=== PATIENT | female | born 1975 | race Caucasian/White ===

== ENCOUNTER 2017-06-21 18:02 | Inpatient (IN) ==
[2017-06-21] MEDS: LACTATED RINGERS 1,000 ML IV SCH (18:13)
[2017-06-21] MEDS ORDERED: ceFAZolin 2,000 MG in PREMIX 1 EACH IV ONE (18:16)
[2017-06-21] MEDS ORDERED: CITRIC ACID/SODIUM CITRATE 30 ML UDCUP PO ONE (18:16)
[2017-06-21] MEDS ORDERED: FAMOTIDINE 20 MG/2 ML VIAL IV ONE (18:16)
[2017-06-21] MEDS ORDERED: OXYTOCIN/LR 20 UNIT/1,000 ML BAG IV ONE ×2 (18:17→20:35)
[2017-06-21 18:41] LABS: Basophils % 0.3 % (0.0-0.8); Eosinophils % 0.2 % (0.00-10.9); Hematocrit 36.3 VOL% (35.7-47.0); Hemoglobin 11.8 GM/DL (12.0-16.0); Immature Granulocytes % 0.6 %; Immature Granulocytes Absolute 0.06 #; Lymphocytes # 1.1 10*3/uL (1.4-4.0); Lymphocytes % 10.1 % (21.3-54.2); Mean Corpuscular HGB Conc 32.5 GM/DL (32-36); Mean Corpuscular Hemoglobin 27 PG (27-34); Mean Corpuscular Volume 81.8 FL (87-102); Monocytes % 9.3 % (1.7-12.7); Neutrophils # 8.5 10*3/uL (1.4-7.4); Neutrophils % 79.5 % (38.7-73.9); Platelet Count 264 T/CUMM (130-400); Red Blood Count 4.44 MC/CUMM (3.8-5.5); Red Cell Distribution Width 14.1 % (9.3-17.3); White Blood Count 10.7 T/CUMM (4-12)
[2017-06-21 18:59] LABS: Apearance,Urine Slightly Hazy (Clear); Bilirubin,Urine Negative (Negative); Blood, Urine Negative (Negative); Glucose,Urine (UA) >=500 mg/dL (Negative); Ketones,Urine 80 mg/dL (Negative); Mucus,Urine Few /LPF (Occasional); Nitrite,Urine Negative (Negative); Protein,Urine 30 MG/DL; RBC,Urine <1 /HPF (0-4); Squamous Epithelial Cell,Urine Occasional /HPF (0-10); Urine Color Yellow (Yellow); Urine Specific Gravity 1.026 (1.001-1.035); Urine Urobilinogen < 2.0 EU/DL (0.2-1.0); WBC,Urine 2 /HPF (0-6)
[2017-06-21 19:15] LABS: Alanine Aminotransferase 29 U/L (13-56); Albumin 2.2 G/DL (3.4-5.0); Alkaline Phosphatase 110 U/L (45-117); Aspartate Amino Transferase 23 U/L (0-37); Bilirubin,Total < 0.39 MG/DL (0.2-1.0); Blood Urea Nitrogen 13 MG/DL (7-18); Calcium 8.3 MG/DL (8.5-10.1); Glucose 155 MG/DL (74-106); Osmolality,Calculated 275.8 MOS/KG (273-304); Potassium 4.3 MMOL/L (3.5-5.1); Sodium 137 MMOL/L (136-145); Total Protein 5.6 G/DL (6.4-8.3)
[2017-06-21] MEDS ORDERED: MEASLES/MUMPS/RUBELLA VACCINE 0.5 ML VIAL SUBCUT ONE (20:35)
[2017-06-21] MEDS ORDERED: IBUPROFEN 800 MG TABLET PO PRN (20:35)
[2017-06-21] MEDS ORDERED: LANOLIN 50% CREAM 0.3 OZ TUBE TOP PRN (20:35)
[2017-06-21] MEDS ORDERED: HYDROCORTISONE 2.5% RECTAL CREAM 30 GM TUBE TOP PRN (20:35)
[2017-06-21] MEDS ORDERED: RHO(D) IMMUNE GLOBULIN 300 MCG SYRINGE IM ONE (20:35)
[2017-06-21] MEDS ORDERED: ACETAMINOPHEN 325 MG TABLET PO PRN (20:35)
[2017-06-21] MEDS ORDERED: oxyCODONE/ACETAMINOPHEN 5-325 MG TABLET PO PRN (20:35)
[2017-06-21] MEDS ORDERED: DIPH/TET/ACEL PERT BOOSTER VACCINE 0.5 ML VIAL IM ONE (20:35)
[2017-06-21] MEDS ORDERED: BISACODYL 10 MG SUPP RECTAL PRN (20:35)
[2017-06-21] MEDS ORDERED: WITCH HAZEL PADS 100/JAR TOP PRN (20:35)
[2017-06-21] MEDS ORDERED: BENZOCAINE 20%/MENTHOL 0.5% SPRAY 56 GM CAN TOP PRN (20:35)
[2017-06-21] MEDS ORDERED: ONDANSETRON 4 MG/2 ML VIAL IV PRN (20:35)
[2017-06-21] MEDS ORDERED: fentaNYL 100 MCG/2 ML VIAL ONE (20:42)
[2017-06-21] MEDS ORDERED: MORPHINE 10 MG/10 ML VIAL ONE (20:43)
[2017-06-21] MEDS ORDERED: MIDAZOLAM 2 MG/2 ML VIAL ONE (20:44)
[2017-06-21] MEDS ORDERED: PHENYLEPHRINE 10 MG/1 ML VIAL IV ONE (20:47)
[2017-06-21] MEDS ORDERED: GLUCAGON 1 MG VIAL IM PRN ×2 (21:13→22:57)
[2017-06-21] MEDS ORDERED: DEXTROSE 50% 25 GM/50 ML VIAL IV PRN ×2 (21:13→22:57)
[2017-06-21] MEDS: DOCUSATE SODIUM 100 MG CAPSULE PO SCH (21:26)
[2017-06-22] MEDS ORDERED: diphenhydrAMINE 50 MG/1 ML VIAL ONE (01:34)
[2017-06-22] MEDS ORDERED: diphenhydrAMINE 50 MG/1 ML VIAL IV PRN (01:36)
[2017-06-22] MEDS: ceFAZolin 1,000 MG in SYRINGE 1 EACH IV SCH ×3 (04:07→20:41)
[2017-06-22 05:09] LABS: Basophils % 0.2 % (0.0-0.8); Eosinophils % 0.1 % (0.00-10.9); Hematocrit 32.9 VOL% (35.7-47.0); Hemoglobin 10.3 GM/DL (12.0-16.0); Immature Granulocytes % 0.7 %; Immature Granulocytes Absolute 0.09 #; Lymphocytes # 0.9 10*3/uL (1.4-4.0); Lymphocytes % 6.7 % (21.3-54.2); Mean Corpuscular HGB Conc 31.3 GM/DL (32-36); Mean Corpuscular Hemoglobin 26 PG (27-34); Mean Corpuscular Volume 83.3 FL (87-102); Mean Platelet Volume 11.3 FL (9.6-12.0); Monocytes # 1.1 10*3/uL (0.11-0.8); Monocytes % 7.8 % (1.7-12.7); Neutrophils # 11.5 10*3/uL (1.4-7.4); Neutrophils % 84.5 % (38.7-73.9); Platelet Count 212 T/CUMM (130-400); Red Blood Count 3.95 MC/CUMM (3.8-5.5); Red Cell Distribution Width 13.9 % (9.3-17.3); White Blood Count 13.7 T/CUMM (4-12)
[2017-06-22] MEDS ORDERED: INSULIN NPH SUBCUT SCH (07:30)
[2017-06-22] MEDS ORDERED: INSULIN REGULAR SUBCUT SCH ×2 (07:30→16:30)
[2017-06-22] MEDS: DOCUSATE SODIUM 100 MG CAPSULE PO SCH ×2 (08:49→20:41)
[2017-06-22] MEDS: LACTATED RINGERS 1,000 ML IV SCH (14:16)
[2017-06-22] MEDS ORDERED: INSULIN ISOPHANE SUBCUT SCH (16:30)
[2017-06-22] MEDS: INSULIN REGULAR 100 UNIT/ML SUBCUT SCH (21:45)
[2017-06-23] MEDS: MAGNESIUM HYDROXIDE SUSP 30 ML UDCUP PO PRN (09:01)
[2017-06-23] MEDS: DOCUSATE SODIUM 100 MG CAPSULE PO SCH ×2 (09:01→21:44)
[2017-06-23] MEDS: INSULIN REGULAR 100 UNIT/ML SUBCUT SCH ×2 (12:00→18:00)
[2017-06-23] MEDS: oxyCODONE/ACETAMINOPHEN 5-325 MG TABLET PO PRN (16:01)
[2017-06-23] MEDS: metFORMIN 500 MG TABLET PO SCH (16:40)
[2017-06-24] MEDS: oxyCODONE/ACETAMINOPHEN 5-325 MG TABLET PO PRN (05:52)
[2017-06-24] MEDS: MAGNESIUM HYDROXIDE SUSP 30 ML UDCUP PO PRN (07:40)
[2017-06-24] MEDS: metFORMIN 500 MG TABLET PO SCH (07:42)
[2017-06-24] MEDS: DOCUSATE SODIUM 100 MG CAPSULE PO SCH (07:42)
[2017-06-24 07:46] VITALS: BP 107/63
[2017-06-24] MEDS: INSULIN REGULAR 100 UNIT/ML SUBCUT SCH (12:00)
== END 2017-06-24 12:55 | disposition home or self-care (01) | DRG 540 ==
LOC: N.LDOUT 18:02 → N.LD 18:04 → N.OB 22:53
PROVIDERS: ADMIT Specialist; ATTEND Specialist